=== PATIENT | female | born 1945 | race Caucasian/White ===

== ENCOUNTER → 2016-08-17 | Outpatient (CLI) | payer MEDICARE, MEDICAID ==
[~2016-08-17] MED LIST: ATEN100T45; DIPH1TAB25 PO; ESOM20SU; GBPN600T; HCT25T; HYDR-1231 PO; HYDR-707 PO; KCL20TCR; LOSA1TAB15; POTA20TA7 PO; ROPI1TAB40; SERT50TA; TIOT18CA; [UNRECOGNIZED DRUG - OTHER]; hctz; nexium
--- OUTSIDE RECORDS SUMMARY | 2016-08-17 16:46 | XMS REPORT | Continuity of Care Document ---
Author Author [facility] Organization [facility] Address Unknown Phone Unavailable Care Team Providers Care Consulting Group Analyst Name Role Phone SETH ROMERO DO PCP Insurance Providers Payer Name Policy Number Subscriber Name Relationship [employer] [id number] Tramaine Hernandez 18 Self / Same As Patient [facility] [id number] Tramaine Hernandez 18 Self / Same As Patient Advance Directives Directive Response Recorded Date/Time Advance Directives No 08/17/14 6:17pm Health Care Power of Financial Internship No 08/17/14 6:17pm Organ Donor No 08/17/14 6:17pm Resuscitation Status Full Code 08/17/14 6:17pm Problems Medical Problems Problem Onset Date Status Rib fractures Unknown Active Rib fractures Unknown Active Medications Medication Dose Route Sig Days/Qty Instructions Order Date Discontinued Date Status Atenolol DAILY 08/09/09 Active Gabapentin 08/09/09 01/05/11 Discontinued Hydrochlorothiazide 08/09/09 08/09/09 Discontinued Losartan/Hydrochlorothiazide 1 Tab DAILY 08/09/09 Active Potassium Chloride 08/09/09 08/17/14 Discontinued Ropinirole Hcl DAILY 08/09/09 Active Sertraline HCl 100 BEDTIME 08/09/09 Active Tiotropium [facility] 08/09/09 08/17/14 Discontinued Acetaminophen/Hydrocodone Bitart 1 - 2 Each PO Q 4 - 6 HR PRN 20 Qty 08/17/14 Discontinued Diphenoxylate HCl/Atropine (Lomotil) 1 - 2 Each PO QID PRN 15 Qty 06/2009/06/12 Discontinued [chlor rosio] 09/06/12 08/17/14 Discontinued [nexium] 40 Mg DAILY 09/06/12 Active [hctz] 25 Mg DAILY 09/06/12 Active Potassium Chloride 40 Meq PO DAILY 08/17/14 Active Hydrocodone Bit/Acetaminophen 1-2 Tab PO EVERY 6 HOURS PRN PAIN 15 Qty 08/17/14 Active Social History Social History Problem Response Recorded Date/Time Alcohol Use Denies Use 08/17/2014 6:17pm Recreational Drug Use No 08/17/2014 6:17pm Recent Foreign Travel No 08/17/2014 6:12pm Recent Infectious Disease Exposure No 08/17/2014 6:12pm Hospitalization with Isolation Denies 08/17/2014 6:12pm Smoking Status Former Smoker 08/17/2014 6:17pm Query Response Start Date Stop Date Smoking Status Former Smoker Hospital Discharge Instructions No hospital discharge instructions. Plan of Care No plan of care. Functional Status No functional status results. Allergies, Adverse Reactions, Alerts Allergen Type Severity Reaction Status Last Updated IV Dye, Iodine Containing Contrast Allergy Unknown Active 08/09/09 Penicillins ([id number]) Allergy Unknown Active 08/09/09 Influenza Virus V *RETIRED-03/11/12 Allergy Mild Active 08/09/09 Codeine Allergy Unknown Active 11/14/05 Aspirin Allergy Unknown Active 08/09/09 Immunizations Name Given Type Date of Influenza Vaccine 03/28/14 Historical Vital Signs Acute Vital Signs Vital Response Date/Time Pulse Rate (adult) 65 bpm (60 - 90) Respiratory Rate 20 bpm (12 - 24) O2 Sat by Pulse Oximetry 96 % (88 - 100) Blood Pressure 141/78 mm Hg Pain Pain Intensity 7 Height (Feet) 5 feet Height (Inches) 7 inches Height (Calculated Centimeters) 170.929735 cm Weight (Pounds) 194 pounds Weight (Calculated Kilograms) 87.452999 kilograms Calculated BMI 30.38 Results Laboratory Results Test Name Result Units Flags Reference Collection Date/Time Result Date/ Time Comments White Blood Count 4.9 10^3/uL 4.3-11.0 08/17/2014 7:02pm 08/17/2014 7: 14pm Red Blood Count 4.22 10^6/uL L 4.35-5.85 08/17/2014 7:02pm 08/17/2014 7: 14pm Hemoglobin 12.5 G/DL 11.5-16.0 08/17/2014 7:02pm 08/17/2014 7:14pm Hematocrit 37 % 35-52 08/17/2014 7:02pm 08/17/2014 7:14pm Mean Corpuscular Volume 88 FL 80-99 08/17/2014 7:02pm 08/17/2014 7: 14pm Mean Corpuscular Hemoglobin 30 PG 25-34 08/17/2014 7:02pm 08/17/2014 7: 14pm Mean Corpuscular Hemoglobin Concent 34 G/DL 32-36 08/17/2014 7:02pm 7:14pm Red Cell Distribution Width 14.1 % 10.0-14.5 08/17/2014 7:02pm 2014 7:14pm Platelet Count 166 10^3/uL 130-400 08/17/2014 7:02pm 08/17/2014 7:14pm Mean Platelet Volume 9.7 FL 7.4-10.4 08/17/2014 7:02pm 08/17/2014 7: 14pm Neutrophils (%) (Auto) 58 % 42-75 08/17/2014 7:02pm 08/17/2014 7:14pm Lymphocytes (%) (Auto) 31 % 12-44 08/17/2014 7:02pm 08/17/2014 7:14pm Monocytes (%) (Auto) 8 % 0-12 08/17/2014 7:02pm 08/17/2014 7:14pm Eosinophils (%) (Auto) 3 % 0-10 08/17/2014 7:02pm 08/17/2014 7:14pm Basophils (%) (Auto) 0 % 0-10 08/17/2014 7:02pm 08/17/2014 7:14pm Neutrophils # (Auto) 2.9 X 10^3 1.8-7.8 08/17/2014 7:02pm 08/17/2014 7: 14pm Lymphocytes # (Auto) 1.5 X 10^3 1.0-4.0 08/17/2014 7:02pm 08/17/2014 7: 14pm Monocytes # (Auto) 0.4 X 10^3 0.0-1.0 08/17/2014 7:02pm 08/17/2014 7: 14pm Eosinophils # (Auto) 0.2 10^3/uL 0.0-0.3 08/17/2014 7:02pm 08/17/2014 7 :14pm Basophils # (Auto) 0.0 10^3/uL 0.0-0.1 08/17/2014 7:02pm 08/17/2014 7: 14pm Sodium Level 141 MMOL/L 135-145 08/17/2014 7:02pm 08/17/2014 7:36pm Potassium Level 3.6 MMOL/L 3.6-5.0 08/17/2014 7:02pm 08/17/2014 7:36pm Chloride Level 105 MMOL/L 98-107 08/17/2014 7:02pm 08/17/2014 7:36pm Carbon Dioxide Level 23 MMOL/L 21-32 08/17/2014 7:02pm 08/17/2014 7: 36pm Blood Urea Nitrogen 16 MG/DL 7-18 08/17/2014 7:02pm 08/17/2014 7:36pm Creatinine 0.67 MG/DL 0.60-1.30 08/17/2014 7:02pm 08/17/2014 7:36pm BUN/Creatinine Ratio 24 08/17/2014 7:02pm 08/17/2014 7:36pm Estimat Glomerular Filtration Rate > 60 08/17/2014 7:02pm 2014 7:36pm GFR INTERPRETIVE DATA UNITS FOR ESTIMATED GFR (eGFR): mL/min/1.73 M2 REFERENCE RANGE FOR ESTIMATED GFR (eGFR) eGFR NORMAL eGFR >60 MODERATELY DECREASED eGFR 30-59 SEVERLY DECREASED eGFR 15-29 KIDNEY FAILURE <15 (OR DIALYSIS) Glucose Level 108 MG/DL H 70-105 08/17/2014 7:02pm 08/17/2014 7:36pm Calcium Level 9.6 MG/DL 8.5-10.1 08/17/2014 7:02pm 08/17/2014 7:36pm Total Bilirubin 0.6 MG/DL 0.1-1.0 08/17/2014 7:02pm 08/17/2014 7:36pm Alkaline Phosphatase 79 U/L 40-136 08/17/2014 7:02pm 08/17/2014 7:36pm Aspartate Amino Transf (AST/SGOT) 24 U/L 5-34 08/17/2014 7:02pm 2014 7:36pm Alanine Aminotransferase (ALT/SGPT) 18 U/L 0-55 08/17/2014 7:02pm 08/17 7:36pm Troponin I < 0.30 NG/ML <0.30 08/17/2014 7:02pm 08/17/2014 7:44pm Total Protein 7.2 G/DL 6.4-8.2 08/17/2014 7:02pm 08/17/2014 7:36pm Albumin 3.9 G/DL 3.2-4.5 08/17/2014 7:02pm 08/17/2014 7:36pm Lipase 17 U/L 8-78 08/17/2014 7:02pm 08/17/2014 7:36pm Procedures Procedure Status Date Provider(s) Tracing only of electrocardiogram completed 08/17/14 WOLF SWANSON MD Encounters Encounter Location Date/Time Registered Emergency Room [facility] 08/17/14 6:00pm Recent Diagnosis
--- NOTE | 2016-08-17 17:27 | Diagnostic Imaging Report ---
INDICATION: Cough. Difficulty breathing. COMPARISON: Earlier same day. FINDINGS: Frontal and lateral views of the chest demonstrate normal heart size and pulmonary vascularity. The lungs are clear. There are no signs of infiltrate, pleural effusions or pneumothoraces. The visualized osseous structures show no acute abnormalities. IMPRESSION: 1. No acute process. No signs of infiltrates, effusions or pneumothoraces. Dictated by: Dictated on workstation # [id number]
== END ==
LOC: RAD 16:43
PROVIDERS: ATTEND Internal Medicine
DX: J44.9 Chronic obstructive pulmonary disease, unspecified (principal)
CPT/HCPCS: 71020

== ENCOUNTER → 2016-11-09 | Outpatient (CLI) | payer MEDICAID, MEDICARE ==
--- NOTE | 2016-11-11 08:34 | Diagnostic Imaging Report ---
Bilateral screening mammogram The current study was also evaluated with a Computer Aided Detection (CAD) system. INDICATION: Screening. No current complaints stated on the questionnaire. COMPARISON: 02/06/15. FINDINGS: The breasts are composed of heterogeneously dense parenchyma which may decrease mammographic sensitivity. There is an asymmetry seen along the central slightly superior aspect of the left MLO view measuring about 1 cm in size. No definite correlate on the CC projection. The right breast demonstrate no significant change. IMPRESSION: Focal compression views and ultrasound evaluation for asymmetry seen in the central aspect of the left MLO view recommended. ACR BI-RADS Category 0: Incomplete. (Needs additional imaging evaluation). Result letter will be mailed to the patient. Note: At least 10% of breast cancer is not imaged by mammography. Dictated by: Dictated on workstation # [id number]
== END ==
LOC: RAD 15:10
PROVIDERS: ATTEND Internal Medicine
DX: Z12.31 Encounter for screening mammogram for malignant neoplasm of breast (principal)
CPT/HCPCS: 77067

== ENCOUNTER → 2016-12-02 | Outpatient (CLI) | payer MEDICARE ==
--- NOTE | 2016-12-02 14:45 | Diagnostic Imaging Report ---
EXAMINATION: Left breast diagnostic mammogram with a Computer Aided Detection (CAD) system. INDICATION: Asymmetry along the central aspect of the left MLO view. FINDINGS: Less prominent asymmetry is seen along the lateral view and focal compression left MLO view, inseparable from the rest of the fibroglandular tissue. This is in favor of summation artifact of parenchyma. There are vascular and benign-appearing calcifications seen. IMPRESSION: Less prominent asymmetry on additional views with background dense parenchyma. Ultrasound evaluation is pending. ACR BI-RADS Category 0: Incomplete. (Needs additional imaging evaluation). Result letter will be mailed to the patient. Note: At least 10% of breast cancer is not imaged by mammography. Dictated by: Dictated on workstation # [id number]
--- NOTE | 2016-12-02 20:03 | Diagnostic Imaging Report ---
EXAMINATION: Left breast ultrasound. INDICATION: Asymmetry in the central aspect of the left MLO view. FINDINGS: There is a minimally complicated cyst with minimal debris seen at 11:00 zone, 4 cm from the nipple. It is 5 mm in maximum dimension. The four-quadrants and retroareolar region of the left breast otherwise demonstrate no significant abnormality. IMPRESSION: No suspicious lesion. Tiny complicated cyst at the 11:00 zone does not necessarily explain the mammographic asymmetry, which could be summation artifact of the dense background parenchyma. A six-month followup mammogram is recommended to ensure stability or resolution. ACR BI-RADS Category 3: Probably benign findings. Result letter will be mailed to the patient. Note: At least 10% of breast cancer is not imaged by mammography. Dictated by: Dictated on workstation # [id number]
== END ==
LOC: RAD 12:43
PROVIDERS: ATTEND Internal Medicine
DX: R92.8 Other abnormal and inconclusive findings on diagnostic imaging of breast (principal); N60.02 Solitary cyst of left breast
CPT/HCPCS: 76641

== ENCOUNTER 2016-12-26 14:14 | Emergency (ER) | payer MEDICARE ==
[~2016-12-26] VITALS: Ht 165.1 cm; Wt 75.7 kg
--- NOTE | 2016-12-26 14:42 | ED Neck-Back Pain/Injury ---
General Stated Complaint: NECK PAIN Source of Information: Patient Exam Limitations: No Limitations History of Present Illness Time Seen by Provider: 14:28 Initial Comments Patient presents with slowly progressive pain starting yesterday in the left side of her neck muscles making it hard for her to turn her neck, down. This is never happened before. No recent viral or bacterial infections. No sick contacts. No travel. She has obstructive sleep apnea but no other significant medical problems. She denies having any heart or stroke history. She never had her carotids worked up. She denies any syncope, palpitations, loss of vision, numbness, tingling, weakness, trauma Allergies and Home Medications Allergies Coded Allergies: Influenza Virus V *RETIRED-03/11/12 (Unverified Allergy, Mild, 08/09/09) Codeine (Verified Allergy, Unknown, 11/14/05) IV Dye, Iodine Containing Contrast (Unverified Allergy, Unknown, 08/09/09) Penicillins (Verified Allergy, Unknown, 08/09/09) aspirin (Verified Allergy, Unknown, 08/09/09) Home Medications Atenolol 100 Mg Tablet, DAILY, (Reported) Hydrocodone Bit/Acetaminophen 1 Tab Tablet, 1-2 TAB PO Q6H PRN for PAIN, #15 Prescribed by: WOLF SWANSON on 08/17/141925 Losartan/Hydrochlorothiazide 1 Tab Tablet, 1 TAB DAILY, (Reported) Potassium Chloride 20 Meq Tab.prt.sr, 40 MEQ PO DAILY, (Reported) Ropinirole Hcl 1 Mg Tablet, DAILY, (Reported) Sertraline Hcl 50 Mg Tablet, 100 HS, (Reported) [hctz] , 25 MG DAILY, (Reported) [nexium] , 40 MG DAILY, (Reported) Constitutional: see HPI, No chills, No diaphoresis, No fever EENTM: No ear discharge, No ear pain, No hearing loss Respiratory: No cough, No short of breath Cardiovascular: No chest pain, No Hx of Intervention, No palpitations, No syncope, No vascular heart diseas Gastrointestinal: No abdominal pain, No constipation, No diarrhea Musculoskeletal: see HPI Skin: No pruritus, No rash Past Fijucbg-Gshqwz-Ftvpzk Hx Patient Social History Alcohol Use: Denies Use Recreational Drug Use: No Smoking Status: Never a Smoker Recent Foreign Travel: No Contact w/Someone Who Travel: No Immunizations Up To Date Date of Influenza Vaccine: Mar 28, 2014 Seasonal Allergies Seasonal Allergies: No Surgeries HX Surgeries: Yes Surgeries: Gallbladder, Hysterectomy, Oophorectomy, Tonsillectomy Respiratory Hx Respiratory Disorders: Yes Respiratory Disorders: Sleep Apnea, COPD Cardiovascular Hx Cardiac Disorders: Yes Cardiac Disorders: Hypertension Neurological Hx Neurological Disorders: No Reproductive System Hx 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, Menopausal Genitourinary Hx Genitourinary Disorders: No Gastrointestinal Hx Gastrointestinal Disorders: Yes Gastrointestinal Disorders: Gastroesophageal Reflux, Diverticulosis Musculoskeletal Hx Musculoskeletal Disorders: Yes (RESTLESS LEG) Musculoskeletal Disorders: Arthritis Endocrine Hx Endocrine Disorders: No HEENT HX ENT Disorders: No Cancer Hx Cancer: No Psychosocial Hx Psychiatric Problems: Yes Behavioral Health Disorders: Depression Integumentary HX Skin/Integumentary Disorder: No Blood Transfusions Hx Blood Disorders: No Physical Exam Vital Signs Capillary Refill : General Appearance: No Apparent Distress, WD/WN HEENT: PERRL/EOMI, TMs Normal, Normal ENT Inspection, Pharynx Normal (mild dry) , Other (no temporal tenderness to palpation.) Neck: Normal Inspection, Supple, No Carotid Bruit, No JVD, Limited Range of Motion (secondary to tenderness.), Tender Lateral (left sternal cleidomastoid muscle tenderness.) Cardiovascular: Regular Rate, Rhythm, No Edema, No Gallop, No JVD, No Murmur, Normal Peripheral Pulses Respiratory: Lungs Clear Peripheral Pulses: 3+ Radial Pulses (R), 3+ Radial Pulses (L) Neurologic/Psychiatric: Alert, Oriented x3, No Motor/Sensory Deficits, Normal Mood/Affect, process expert II-XII Norm as Tested, No Abnormal Cerebellar Tests Skin: Normal Color, Warm/Dry Lymphatic: No Adenopathy Progress/Results/Core Measures Progress Note : Time: 14:38 Progress Note No history of trauma so cervical x-ray will not be useful as fractures are suspected. No bruits are heard no history to lead towards CVA. No neurologic deficits. This is likely torticollis and has responded well just to direct heat. We will allow her to go home with conservative therapy and return precautions. Departure Impression Impression: Primary Impression: Torticollis, acute Disposition: 01 HOME, SELF-CARE Condition: Improved Departure-Patient Inst. Decision time for Depature: 14:40 Referrals: SETH ROMERO DO (PCP/Family) Primary Care Physician Patient Instructions: Abraham (NATHALIE) Add. Discharge Instructions: Torticollis is a contraction and painful sensation in the muscles of the neck that would not be accompanied by any nerve changes such as weird taste, vision changes, blurry vision, double vision, blindness, numbness or tingling sensations or weakness. If you experience these symptoms you should return to the ER immediately. This should resolve over the next few days to weeks and will be helped by applying heat directed at the site of the pain as many times during the day as it takes to control your symptoms. You may also use Tylenol. He will be given a dose of NSAIDs today in the ER and should not resume taking NSAIDs until tomorrow. Every 8 hours as needed you can use the muscle relaxant called cyclobenzaprine or Flexeril. If not improving in 1-2 weeks he should follow up with your primary care physician for other alternative therapies. Scripts Cyclobenzaprine HCl (Cyclobenzaprine HCl) 10 Mg Tablet 10 MG PO Q8H Y for MUSCLE SPASMS, #30 TAB 0 Refills Prov: FABIEN JENSEN 12/26/16 Copy Copies To 1: SETH ROMERO DO FABIEN JENSEN Dec 26, 2016 14:42
[2016-12-26] MEDS ORDERED: CYCL10TA9 PO (14:43)
[2016-12-26] MEDS ORDERED: KETOROLAC 30 MG/ML VIAL ONE (14:45)
[2016-12-26] MEDS ORDERED: KETOROLAC 15 MG/ML VIAL IM ONE (14:45)
[2016-12-26 14:57] VITALS: BP 138/93
== END 2016-12-26 14:58 | disposition home or self-care (01) ==
LOC: EDUNIT# 14:14 → ER 14:15
DX: M43.6 Torticollis (principal); E03.9 Hypothyroidism, unspecified; I10 Essential (primary) hypertension; Z90.89 Acquired absence of other organs
CPT/HCPCS: 96372; 99282

== ENCOUNTER → 2017-08-27 | Outpatient (CLI) | payer MEDICARE, MEDICAID ==
[~2017-08-27] MED LIST changes: +CYCL10TA9 PO
--- NOTE | 2017-08-27 15:05 | Diagnostic Imaging Report ---
INDICATION: Left breast density. Patient presents for followup. COMPARISON: 12/02/2016 and 11/09/2016. FINDINGS: The left breast is heterogeneously dense, limiting the sensitivity of mammography. The previously noted focal asymmetric density in the central left breast on the MLO view is no longer visualized. This most likely represented superimposed fibroglandular tissue. No underlying mass is identified. No malignant appearing microcalcifications are identified. There are scattered benign-appearing parenchymal and vascular calcifications. The left axilla is unremarkable. IMPRESSION: The followup views are without evidence of malignancy. The asymmetric density in the left breast previously noted is no longer visualized. The patient may return to routine annual screening mammography. ACR BI-RADS Category 2: Benign findings. Result letter will be mailed to the patient. Note: At least 10% of breast cancer is not imaged by mammography. Dictated by: Dictated on workstation # [id number]
== END ==
LOC: RAD 12:44
PROVIDERS: ATTEND Internal Medicine
DX: N63.21 Unspecified lump in the left breast, upper outer quadrant (principal)

== ENCOUNTER → 2019-04-10 | Outpatient (CLI) | payer MEDICARE ==
--- NOTE | 2019-04-10 16:58 | Diagnostic Imaging Report ---
EXAMINATION: Magnetic resonance imaging of the left knee without intravenous contrast DATE: April 10, 2019. COMPARISON: None. INDICATION: 74-year-old female, left knee pain, arthritis. TECHNIQUE: Multiplanar, multisequence non contrast enhanced MR imaging was accomplished. FINDINGS: MENISCI: There is fairly well-demarcated blunting of the free edge of the body/posterior horn junction. This may reflect partial meniscectomy changes versus sequela of prior meniscal tear. There is additional marked irregularity and complex tearing of the posterior horn and posterior root attachment of the medial meniscus. There is no current medial meniscal extrusion. The lateral meniscus is intact. LIGAMENTS AND TENDONS: There is a prominent notch osteophyte which does contact the anterior cruciate ligament. There is no complete tear of the anterior cruciate ligament. The posterior cruciate ligament is intact. The medial collateral ligament is intact. The iliotibial band, mid third lateral capsular ligament, fibular collateral ligament, biceps femoris tendon and conjoined tendon are intact. The quadriceps tendon and patella ligament are intact. JOINT: There are broad areas of full-thickness or very near full-thickness cartilage loss of the patella and femoral trochlea. There are broad areas of full-thickness cartilage loss involving the weightbearing portion of the medial femoral condyle and adjacent medial tibial plateau. There is mild thinning of the lateral compartment cartilage. There is no large knee joint effusion, prominent synovitis, or identified intra-articular body. BONE: There is extensive edema-like signal in the tibial plateau centered to the lateral aspect of midline. This also extends to the level of the proximal tibial metaphysis. There is incompletely imaged bone infarct involving the proximal tibial metadiaphysis. There is no pathopneumonic double line as sign of osteonecrosis at the level of the epiphysis. There is also no identified fracture line. There is degenerative related marrow edema in the medial femoral condyle and patella. BURSAE AND SOFT TISSUES: There is a very small slitlike Garcia's cyst. IMPRESSION: 1. Complex tearing of the posterior horn and posterior root attachment of the medial meniscus without current medial meniscal extrusion. 2. Grossly intact lateral meniscus. 3. Prominent notch osteophyte directly contacting the anterior cruciate ligament which is otherwise intact. Intact posterior cruciate ligament. Additional ligaments and tendons are intact. 4. 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 No large knee joint effusion, prominent synovitis, or identified intra-articular body. 5. Very prominent edema-like signal in the proximal tibial epiphysis extending into the metaphysis with an adjacent bone infarct of the proximal tibial metadiaphysis. The signal in the proximal tibial epiphysis and metaphysis is not specific. There is no pathopneumonic double line sign of osteonecrosis although this is still a primary differential consideration along with stress-related marrow edema. Bone contusion would be less likely given location but is considered. Dictated by: Dictated on workstation # [id number]
== END ==
LOC: RAD 12:34
PROVIDERS: ATTEND Internal Medicine
DX: M17.12 Unilateral primary osteoarthritis, left knee (principal); S83.242A Other tear of medial meniscus, current injury, left knee, initial encounter
CPT/HCPCS: 73721